=== PATIENT | male | born 1990 | race Caucasian/White ===

== ENCOUNTER 2018-01-05 21:06 | Emergency (ER) | payer BC ==
--- NOTE | 2018-01-05 21:12 | UC ---
Lower Extremity/Ankle HPI - History of Current Complaint Stated Complaint: FOOT INJURY Time Seen by Provider: 01/05/18 21:12 - Allergies/Home Medications Allergies/Adverse Reactions: Allergies Allergy/AdvReac Type Severity Reaction Status Date / Time ENVIRONMENTAL - SEASONAL Allergy Unknown Uncoded 06/24/12 13:24 Reaction Details PMH/Surg Hx/FS Hx/Imm Hx - Surgical History Surgical History: Yes Surgery Procedure, Year, and Place: 05/2011 LEFT HAND SURGERY, [facility] - Social History Substance Use Type: None Discharge - Discharge Plan Referrals: No Primary Care Phys,NOPCP [Primary Care Provider] -
[2018-01-05 21:29] VITALS: BP 140/78
--- NOTE | 2018-01-05 21:47 | RAD ---
INDICATION: Rock versus left medial foot COMPARISON: None. TECHNIQUE: 3 views of the left foot were obtained. FINDINGS: There is soft tissue swelling overlying the medial aspect of the left foot. The adequately corticated bones are properly aligned. Joint spaces appear maintained. No fracture, dislocation or focal bony abnormality is seen. IMPRESSION: SOFT TISSUE SWELLING OVERLYING THE MEDIAL ASPECT OF THE LEFT FOOT WITHOUT UNDERLYING FRACTURE, DISLOCATION OR RADIOGRAPHICALLY VISIBLE SUBCUTANEOUS FOREIGN BODY. If the patient's symptoms persist, follow-up imaging is recommended.
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
== END 2018-01-05 21:50 | disposition home or self-care (01) ==
LOC: UCEAST 21:06
DX: M79.672 Pain in left foot (principal); M79.89 Other specified soft tissue disorders
CPT/HCPCS: 99211; G0463

== ENCOUNTER → 2019-02-06 | Emergency (ER) | payer BC ==
[~2019-02-06] MED LIST: hydrOXYzine HCL TAB* 50 MG PO ONE
--- OUTSIDE RECORDS SUMMARY | 2019-02-06 16:53 | XMS REPORT | Continuity of Care Document ---
:1990 External Reference #:[id number] Author Name JULIUS Stokes Address [address] [place] [address] Care Team Providers Name Role Phone Daniel Blake MD Care Team Information Mental Health Counselor Unavailable Daniel Blake MD Primary Care Physician Unavailable Payers Date Identification Numbers Payment Provider Subscriber Policy Number: [id number] [place] Plan Taras Amor PayID: [id number] [address] [place] [address] Effective: 2018 Policy Number: [id number] BC/BS Of MELANIEY Taras Amor Expires: 2018 Group Name: Talya [address] [address] PayID: [id number] [place] [address] Problems Active Problems Provider Date Loss of appetite Jai Godinez M.D. Onset: 03/09/2011 Acne Jai Godinez M.D. Onset: 04/12/2012 Verruca vulgaris Jai Godinez M.D. Onset: 04/12/2012 Adult health examination Jai Godinez M.D. Onset: 04/12/2012 Open wound of forearm with tendon Jai Godinez M.D. Onset: 10/10/2011 involvement Acute upper respiratory infection Jai Godinez M.D. 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 Adderall XR 1 by mouth 30caps Aura Del Valle, 03/11/2018 15mg Caps every day 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 ER 24HR History Medications Claritin 1 po qd allergies 90tabs Devi 12/24/2018 - 10mg Tablets MunadonnawayneYuridia 01/18/2019 Adderall 1 by mouth three 90tabs Aura 02/02/2018 - 5mg Tablets times a day as JULIUS Del Valle 03/11/2018 needed Doxycycline Hyclate 1 by mouth twice a 60tabs Aura 01/26/2018 - day for 30 JULIUS Del Valle 04/13/2018 100mg Tablets Hydrocortisone apply sparingly to 30gm Devi 05/03/2012 - Valerate affected area bid Yuridia Porter 01/31/2013 0.2% Cream prn Keflex 1 po tid 30caps Devi 02/02/2012 - 500mg Capsules Yuridia Porter 04/12/2012 Azithromycin 2 po today and 1 po 6tabs 465.9 Jai Sharpe 08/21/2011 - 250mg x 4 days Adela Godinez 10/10/2011 Tablets Minocycline HCL one tab po qhs 90caps 706.1 Jai Sharpe 03/31/2011 - 100mg Adela Godinez 12/23/2017 Capsules Clindagel apply to affected 30g 706.1 Gordon Downs, 03/31/2011 - 1% Gel area daily 30cm M.DRadha 01/31/2013 Tretinoin apply to affected 80grams 706.1 Gordon Downs, 03/31/2011 - 0.05% Cream area qhs M.DRadha 01/31/2013 10cm area Azithromycin 2 po today and 1 po 6tabs 465.9 Jai Sharpe 03/31/2011 - 250mg x 4 days Adela Godinez 08/21/2011 Tablets Claritin-D 24 Hour 1 po qd 15tabs 465.9 Jai Sharpe 04/16/2010 - Adela Godinez 05/07/2010 10-240mg Tablets ER 24HR Azithromycin 2 po today and 1 po 6tabs 465.9 Jai Sharpe 04/16/2010 - 250mg x 4 days Adela Godinez 04/23/2010 Tablets Note - To Whom It He will require 1units Jai Sharpe 04/02/2010 - May Concern ongoing medical, Adela Godinez 05/28/2010 nutritional and psychological therapy for his condition, medically necessary [facility] 02/05/2010 - [facility] 12/23/2017 Tablets Puposky Calcium 500/D 1 po qd 180units 783.0 Jai Sharpe 01/08/2010 - Adela Godinez 03/31/2011 [id number] Chewtabs Azithromycin three times a week Unknown - 250mg 01/29/2018 Tablets Medications Administered in Office Medication SIG Qnty Indications Ordering Provider Date Brief Emotional/Behav Aura Del Valle [facility] 01/26/2018 Assessment W/ Scoring Doc Per Standard Inst Injection Aurelia Emotional/Behav Aura Del Valle [facility] 12/23/2017 Assessment W/ Scoring Doc Per Standard Inst Injection Injection Subcutaneous Or Unknown 06/29/2007 Intramuscular Injection Injection Subcutaneous Or Unknown 06/29/2007 Intramuscular Injection Immunizations CPT Code Status Date Vaccine Lot # [id number] Given 04/02/2018 Influenza Vac, Quadriv[place], [place] [address] Given 05/08/2015 Influenza Vac, [place], [place] [address] Given 01/31/2013 Gardasil vacine typs 6,11,16,18 3 dose schedule [id number] 82698 Given 02/02/2012 Tdap Tetanus, W Pertussis [id number] 77218 Given 10/20/2006 Meningococcal Conjugate Vaccine,Serogroups For Intramuscular Use 29125 Given 10/07/2005 Hep A Ped 2-Dose Immunization 87343 Given 10/08/2004 Hep A Ped 2-Dose Immunization 50653 Given 06/08/2001 Tdap Tetanus, W Pertussis 00360 Given 05/17/1994 Hepatitis B Immunization, [place]-19 Years [address] Given 12/10/1993 Hepatitis B Immunization, -19 Years 90218 Given 10/29/1993 Hepatitis B Immunization, [place]-19 Years [address] Given 10/09/1993 DTaP Immunization 24801 Given 10/09/1993 (IPV) Inactive Poliovirus Vaccine 24918 Given 11/03/1991 MMR Virus Immunization 10962 Given 02/24/1990 (IPV) Inactive Poliovirus Vaccine 37994 Given 02/24/1990 (Hib) Hemoplilus Influenza B 86269 Given 12/31/1989 MMR Virus Immunization 25480 Given 12/31/1989 DTaP Immunization 72899 Given 04/28/1989 DTaP Immunization 07316 Given 01/01/1989 (IPV) Inactive Poliovirus Vaccine 08247 Given 01/01/1989 DTaP Immunization 21088 Given 1988 (IPV) Inactive Poliovirus Vaccine 99687 Given 1988 DTaP Immunization Vital Signs Date Vital Result Comment 01/18/2019 2:28pm BP Systolic 110 mmHg BP Diastolic 70 mmHg Heart Rate 78 /min Body Temperature 97.7 F Respiratory Rate 16 /min Weight 187.00 lb 07/01/2018 1:34pm BP Systolic 128 mmHg BP Diastolic 72 mmHg Heart Rate 78 /min Body Temperature 97.3 F Respiratory Rate 18 /min Weight 198.00 lb 04/13/2018 1:27pm BP Systolic 124 mmHg BP Diastolic 82 mmHg Heart Rate 64 /min Body Temperature 98.2 F Respiratory Rate 16 /min Height 73.25 inches 6'1.25" Weight 200.00 lb BMI (Body Mass Index) 26.2 kg/m2 01/26/2018 5:28pm BP Systolic 120 mmHg BP Diastolic 82 mmHg Heart Rate 70 /min Body Temperature 97.6 F Respiratory Rate 15 /min Height 73.25 inches 6'1.25" Weight 189.50 lb BMI (Body Mass Index) 24.8 kg/m2 12/23/2017 8:45am BP Systolic 106 mmHg BP Diastolic 60 mmHg Heart Rate 68 /min Body Temperature 97.2 F Respiratory Rate 16 /min Height 73.25 inches 6'1.25" Weight 186.38 lb BMI (Body Mass Index) 24.4 kg/m2 01/31/2013 4:21pm BP Systolic 138 mmHg BP Diastolic 70 mmHg Heart Rate 60 /min Body Temperature 99.5 F Height 73.25 inches 6'1.25" Weight 181.00 lb BMI (Body Mass Index) 23.7 kg/m2 Right Visual Acuity Distance 20/20 Left Visual Acuity Distance 20/20 wears corrective lens 05/03/2012 10:27am BP Systolic 104 mmHg BP Diastolic 70 mmHg Heart Rate 60 /min Body Temperature 98.0 F Respiratory Rate 14 /min Height 73.5 inches 6'1.50" Weight 184.00 lb BMI (Body Mass Index) 23.9 kg/m2 04/12/2012 9:02am BP Systolic 120 mmHg BP Diastolic 78 mmHg Heart Rate 60 /min Body Temperature 97.0 F Height 73.5 inches 6'1.50" Weight 186.00 lb BMI (Body Mass Index) 24.2 kg/m2 Right Visual Acuity Distance 20/20 corrected Left Visual Acuity Distance 20/20 02/02/2012 10:30am BP Systolic 110 mmHg BP Diastolic 70 mmHg Heart Rate 54 /min Body Temperature 97.2 F Height 73.5 inches 6'1.50" Weight 176.00 lb BMI (Body Mass Index) 22.9 kg/m2 10/10/2011 8:49am BP Systolic 110 mmHg BP Diastolic 70 mmHg Heart Rate 72 /min Respiratory Rate 14 /min Height 73.5 inches 6'1.50" Weight 171.00 lb BMI (Body Mass Index) 22.3 kg/m2 08/21/2011 7:27pm BP Systolic 132 mmHg BP Diastolic 76 mmHg Heart Rate 66 /min Body Temperature 97.4 F Height 73.5 inches 6'1.50" Weight 179.00 lb PT Was Fully Dressed AT This Visit BMI (Body Mass Index) 23.3 kg/m2 03/31/2011 10:02am BP Systolic 110 mmHg BP Diastolic 66 mmHg Heart Rate 60 /min Body Temperature 97.4 F Height 73.5 inches 6'1.50" Weight 164.00 lb BMI (Body Mass Index) 21.3 kg/m2 01/27/2011 8:28am BP Systolic 106 mmHg BP Diastolic 70 mmHg Heart Rate 60 /min Body Temperature 96.9 F Height 73.5 inches 6'1.50" Weight 162.50 lb BMI (Body Mass Index) 21.1 kg/m2 12/30/2010 8:31am BP Systolic 110 mmHg BP Diastolic 60 mmHg Heart Rate 54 /min Body Temperature 96.8 F Height 73.5 inches 6'1.50" Weight 155.38 lb BMI (Body Mass Index) 20.2 kg/m2 11/25/2010 8:59am BP Systolic 110 mmHg BP Diastolic 72 mmHg Heart Rate 56 /min Body Temperature 96.2 F Respiratory Rate 20 /min Height 73.5 inches 6'1.50" Weight 155.00 lb BMI (Body Mass Index) 20.2 kg/m2 09/18/2010 4:32pm BP Systolic 100 mmHg BP Diastolic 62 mmHg Heart Rate 64 /min Body Temperature 96.5 F Height 73.5 inches 6'1.50" Weight 156.00 lb BMI (Body Mass Index) 20.3 kg/m2 08/07/2010 3:40pm BP Systolic 118 mmHg BP Diastolic 60 mmHg Heart Rate 60 /min Body Temperature 98.2 F Height 73.5 inches 6'1.50" Weight 151.00 lb BMI (Body Mass Index) 19.6 kg/m2 07/03/2010 1:46pm BP Systolic 104 mmHg BP Diastolic 66 mmHg Heart Rate 66 /min Body Temperature 97.8 F Height 73.5 inches 6'1.50" Weight 150.00 lb BMI (Body Mass Index) 19.5 kg/m2 06/11/2010 2:54pm BP Systolic 110 mmHg BP Diastolic 64 mmHg Heart Rate 76 /min Body Temperature 98.0 F Weight 148.50 lb 05/28/2010 2:40pm BP Systolic 94 mmHg BP Diastolic 64 mmHg Heart Rate 60 /min Body Temperature 97.4 F Height 73.5 inches 6'1.50" Weight 148.00 lb BMI (Body Mass Index) 19.3 kg/m2 05/07/2010 2:36pm BP Systolic 86 mmHg BP Diastolic 40 mmHg Heart Rate 68 /min Body Temperature 97.7 F Respiratory Rate 16 /min Height 73.5 inches 6'1.50" Weight 148.00 lb BMI (Body Mass Index) 19.3 kg/m2 04/23/2010 4:04pm BP Systolic 90 mmHg BP Diastolic 50 mmHg Heart Rate 60 /min Body Temperature 97.4 F Respiratory Rate 16 /min Height 73.5 inches 6'1.50" Weight 143.00 lb BMI (Body Mass Index) 18.6 kg/m2 04/16/2010 2:52pm BP Systolic 100 mmHg BP Diastolic 68 mmHg Heart Rate 72 /min Body Temperature 98.1 F Height 73.5 inches 6'1.50" Weight 142.00 lb BMI (Body Mass Index) 18.5 kg/m2 04/02/2010 2:55pm BP Systolic 108 mmHg BP Diastolic 62 mmHg Heart Rate 60 /min Body Temperature 97.4 F Height 73.5 inches 6'1.50" Weight 144.00 lb BMI (Body Mass Index) 18.7 kg/m2 03/20/2010 3:15pm BP Systolic 90 mmHg BP Diastolic 52 mmHg Heart Rate 60 /min Body Temperature 97.4 F Height 73.5 inches 6'1.50" Weight 143.00 lb BMI (Body Mass Index) 18.6 kg/m2 03/12/2010 2:59pm BP Systolic 86 mmHg BP Diastolic 60 mmHg Heart Rate 66 /min Body Temperature 97.3 F Height 73.5 inches 6'1.50" Weight 139.38 lb BMI (Body Mass Index) 18.1 kg/m2 02/26/2010 2:48pm BP Systolic 92 mmHg BP Diastolic 52 mmHg Heart Rate 66 /min Body Temperature 97.6 F Height 73.5 inches 6'1.50" Weight 141.25 lb BMI (Body Mass Index) 18.4 kg/m2 02/05/2010 10:10am BP Systolic 96 mmHg BP Diastolic 64 mmHg Heart Rate 60 /min Height 73.5 inches 6'1.50" Weight 136.25 lb BMI (Body Mass Index) 17.7 kg/m2 01/08/2010 10:59am BP Systolic 100 mmHg BP Diastolic 52 mmHg Heart Rate 66 /min Body Temperature 97.9 F Height 73.5 inches 6'1.50" Weight 132.00 lb BMI (Body Mass Index) 17.2 kg/m2 12/25/2009 10:10am BP Systolic 90 mmHg BP Diastolic 40 mmHg Heart Rate 66 /min Body Temperature 97.5 F Height 73.5 inches 6'1.50" Weight 130.00 lb BMI (Body Mass Index) 16.9 kg/m2 Results Test Date Facility Test Result H/L Range Note Laboratory test 12/23/2017 [facility] Nuclear AB (Elana) <1:80 1 finding By Ifa Igg (Negative) Syphillis Igg W/Reflex RPR Nonreactive Nonreactive 2 Bordetella Pertussis AB, 12/23/2017 [facility] Bordetella Pertussis Negative Negative 3 Igg IgG PT Bordetella Pertussis IgG Fha 23.10 IU/mL 4 Lyme Western Blot 12/23/2017 [facility] Lyme Disease IgG Ab WB Positive Abnormal Negative Lyme Disease IgG Bands Present See Comment kDa 5 Lyme Disease IgM Ab WB Negative Negative Lyme Disease IgM Bands Present p41 kDa Lyme Disease Interpretation See Comment 6 Ehrlichia Igg/Igm 12/23/2017 [facility] Anaplasma phagocytophila <1:64 titer <1 :64 7 Ifa([facility]) IgG Ehrlichia chaffeensis IgG AB <1:64 titer <1:64 8 Laboratory test finding 12/23/2017 [facility] Babesiosis Evaluation <1:64 titer <1:64 9 Anaplasma Phagocytophilium TNP titer () 10 Laboratory test 12/23/2017 [facility] HIV 1&2 negative Negative finding (607)- - Antibody Screen (Fma) CBC Electronic Fma 12/23/2017 [place]([facility]) WBC 6.8 x10^3/UL 4.0- 10.0 RBC 5.60 x10^6/UL 3.93-6.00 HGB 16.0 g/dL 12.0-17.0 HCT 48 % 35-50 MCV 86.1 fL 80.0-95.0 MCH 28.6 pg 25.6-32.2 MCHC 33.2 g/dL 32.2-36.0 RDW-CV 13.3 % 11.6-14.4 PLT 241 x10^3/UL 163-400 MPV 9.9 fL 9.4-12.4 Jayla# 3.72 x10^3/UL 1.56-6.13 Lymph# 2.30 x10^3/UL 1.18-3.74 [place]# 0.47 x10^3/UL 0.24-0.82 Eos # 0.3 x10^3/UL 0.0-0.5 Baso # 0.06 x10^3/UL 0.01-0.08 Jayla% 54.4 % 34.0-70.0 Lymph % 33.6 % 20.0-52.0 [place]% 6.9 % 5.0-12.0 Eos% 3.8 % 0.7-7.0 Baso% 0.9 % 0.1-1.2 Comprehensive Metabolic 12/23/2017 [place] Hel[facility](a) Sodium 139 mEq/L 134-149 Prof Potassium 4.9 mEq/L 3.6-5.5 Chloride 101 mEq/L 94-112 Carbon Dioxide 25 mEq/L 21-32 Glucose 62 mg/dL Low 70-105 11 BUN 16 mg/dL 6-26 Creatinine 1.0 mg/dL 0.6-1.4 BUN/Creat Ratio 16.0 CALC 8.0-36.0 Calcium 10.3 mg/dL High 8.6-10.2 12 Total Protein 7.3 g/dL 6.4-8.3 Albumin 5.1 g/dL 3.8-5.5 Globulin 2.2 g/dL 2.0-4.8 A/G Ratio 2.3 CALC 0.6-2.3 Alk. Phosphatase 66 U/L 22-95 Alt (SGPT) 26 U/L 7-35 Ast (Sgot) 32 U/L 5-34 Total Bilirubin 1.1 mg/dL 0.2-1.3 GFR Non- >60 ml/min/1.73m^ >=60 GFR >60 ml/min/1.73m^ >=60 Laboratory test finding 12/23/2017 [place]([facility]) TSH 1.75 mIU/L 0.50-6.00 Free T4 1.08 ng/dL 0.75-1.54 Ua - Non Micro (a) 01/31/2013 [facility] Appearance CLEAR (607)- - Color YELLOW Glucose, Urine (Fma/CMC/CTX) NEG Bilirubin NEG Ketones NEG SP Grav 1.015 Blood NEG PH 7.0 Protein NEG Urobil 0.2 Nitrite NEG Leukocytes (Fma/CMC/Centrex) NEG Ua - Non Micro (a) 04/12/2012 [facility] Appearance CLEAR (607)- - Color YELLOW Glucose NEG Bilirubin NEG Ketones NEG SP Grav 1.015 Blood NEG PH 7.5 Protein NEG Urobil 0.2 Nitrite NEG Leukocytes (Fma/CMC/[facility]rex) NEG Ua - Non Micro (a) 03/31/2011 [facility] Appearance CLEAR (607)- - Color YELLOW Glucose NEG Bilirubin NEG Ketones NEG SP Grav 1.015 Blood NEG PH 7.0 Protein NEG Urobil 0.2 Nitrite NEG Leukocytes (a/CMC/Centrex) NEG Ua - Non Micro (a) 01/27/2011 [facility] Appearance CLEAR (607)- - Color YELLOW Glucose NEG Bilirubin NEG Ketones NEG SP Grav 1.010 Blood NEG PH 7.0 Protein NEG Urobil 0.2 Nitrite NEG Leukocytes (Fma/CMC/Centrex) NEG Ict Hemoccult (Fma) 01/24/2011 [facility] Ict Hemoccult (1) 6/19 NEG (607)- - Ict Hemoccult-(2) 01/06 NEG Ict-Hemoccult (3) 01/08 NEG Laboratory test 12/30/2010 [place] [facility]([facility]) TSH 2.67 mIU/L 0.50-6.00 finding Laboratory test 12/30/2010 [facility] C-Reactive 0.2 mg/L 0.0-5.0 13 finding [address] [place] [address] [phone] Ua - Non Micro 12/30/2010 [facility] Appearance CLEAR (a) (607)- - Color YELLOW Glucose NEG Bilirubin NEG Ketones NEG SP Grav 1.015 Blood NEG PH 5.5 Protein NEG Urobil 0.2 Nitrite NEG Leukocytes (Fma/CMC/Centrex) NEG CBC Electronic (a) 12/30/2010 [facility] WBC 5.0 3.6-9.6 (607)- - RBC 5.19 3.90-5.70 Hemoglobin (Fma/CMC/CTX) 16.0 g/dL 12.1 - 17.2 Hematocrit (Fma/CMC/CTX) 47.3 % 36.1 - 50.3 Platelets 252 10^3/ul 150-400 Lymph% 26.0 20.5-51.1 Mixed% 6.4 Neutrophils % 67.6 Mean Corpuscular Vol 91 82.2-97.4 Mean Corpuscular Hemoglobin 30.9 27.6-33.3 Mean Corpuscular Hemo Concen 33.9 32.0-36.0 RDW 12.6 11.6-13.7 Mean Platelet Volume 8.1 6.5-11.0 Ua - Non Micro (a) 08/07/2010 [facility] Appearance CLEAR (607)- - Color YELLOW Glucose NEG Bilirubin NEG Ketones TRACE SP Grav 1.025 Blood NEG PH 7.0 Protein NEG Urobil 0.2 Nitrite NEG Leukocytes (Fma/CMC/Centrex) NEG Ua - Non Micro (Fma) 07/03/2010 [facility] Medicine Appearance CLEAR (607)- - Color YELLOW Glucose NEG Bilirubin NEG Ketones NEG SP Grav 1.015 Blood NEG PH 7.0 Protein NEG Urobil 0.2 Nitrite NEG Leukocytes (Fma/CMC/Centrex) NEG Ua - Non Micro (a) 06/11/2010 [facility] Appearance CLEAR (607)- - Color YELLOW Glucose NEG Bilirubin NEG Ketones NEG SP Grav 1.010 Blood NEG PH 7.0 Protein NEG Urobil 0.2 Nitrite NEG Leukocytes (a/CMC/Centrex) NEG Ua - Non Micro (a) 05/28/2010 [facility] Appearance CLEAR (607)- - Color YELLOW Glucose NEG Bilirubin NEG Ketones NEG SP Grav <=1.005 Blood NEG PH 5.5 Protein NEG Urobil 0.2 Nitrite NEG Leukocytes (a/CMC/Centrex) NEG Ua - Non Micro (a) 05/07/2010 [facility] Appearance CLEAR (607)- - Color YELLOW Glucose NEG Bilirubin NEG Ketones NEG SP Grav <=1.005 Blood NEG PH 6.5 Protein NEG Urobil 0.2 Nitrite NEG Leukocytes (a/CMC/Centrex) NEG Ua - Non Micro (a) 04/23/2010 [facility] Appearance CLEAR (607)- - Color YELLOW Glucose NEG Bilirubin NEG Ketones NEG SP Grav 1.010 Blood NEG PH 7.5 Protein NEG Urobil 0.2 E.U./dL Nitrite NEG Leukocytes (a/CMC/Centrex) NEG Ua - Non Micro (a) 04/16/2010 [facility] Appearance CLEAR (607)- - Color YELLOW Glucose NEG Bilirubin NEG Ketones NEG SP Grav 1.010 Blood NEG PH 7.0 Protein NEG Urobil 0.2 Nitrite NEG Leukocytes (a/CMC/Centrex) NEG Ua - Non Micro (a) 04/02/2010 [facility] Appearance CLEAR (607)- - Color YELLOW Glucose NEG Bilirubin NEG Ketones NEG SP Grav <=1.005 Blood NEG PH 5.5 Protein NEG Urobil 0.2EU/DL Nitrite NEG Leukocytes (a/CMC/Centrex) NEG Ua - Non Micro (a) 03/20/2010 [facility] Appearance clear (607)- - Color yellow Glucose neg Bilirubin neg Ketones neg SP Grav 1.010 Blood neg PH 7.0 Protein neg Urobil 0.2eu/dl Nitrite neg Leukocytes (a/CMC/[facility]rex) neg Ua - Non Micro (a) 03/12/2010 [facility] Appearance CLEAR (607)- - Color YELLOW Glucose NEG Bilirubin NEG Ketones NEG SP Grav 1.010 Blood NEG PH 6.5 Protein NEG Urobil 0.2EU/DL Nitrite NEG Leukocytes (a/CMC/Centrex) NEG Ua - Non Micro (Fma) 02/26/2010 [facility] Appearance CLEAR (607)- - Color YELLOW Glucose NEG Bilirubin NEG Ketones NEG SP Grav 1.010 Blood NEG PH 7.0 Protein NEG Urobil 0.2 E.U./dL Nitrite NEG Leukocytes (Fma/CMC/Centrex) NEG Ua - Non Micro (Fma) 02/05/2010 [facility] Appearance CLEAR (607)- - Color YELLOW Glucose NEG Bilirubin NEG Ketones NEG SP Grav 1.010 Blood NEG PH 6.5 Protein NEG Urobil 0.2 Nitrite NEG Leukocytes (Fma/CMC/[facility]) NEG Laboratory test 01/08/2010 [facility] Vitamin 93.6 High 10.0-75.0 finding 28 [facility] D,1,25 pg/[place] [address] Dihydro [phone] Comprehensive 01/08/2010 [place] Helene(a) Albumin 4.8 g/dL 3.8-5.5 Metabolic Prof Alk. Phos. 65 U/L 22-95 Alt (SGPT) 28 U/L 10-40 Ast (Sgot) 27 U/L 5-34 BUN 28 mg/dL High 6-26 14 Calcium 10.1 mg/dL 8.6-10.2 Chloride 101 mEq/L 94-112 Creatinine 0.7 mg/dL 0.6-1.4 Carbon Dioxide 25 mEq/L 21-32 Glucose 88 mg/dL 70-105 Sodium 142 mEq/L 134-149 Total Bilirubin 0.5 mg/dL 0.2-1.3 Total Protein 7.1 g/dL 6.3-8.1 Potassium 4.1 mEq/L 3.6-5.5 Globulin 2.3 g/dL 2.0-4.8 A/G Ratio 2.0 Calc 0.6-2.2 BUN/Creat Ratio 38.3 Calc High 8.0-36.0 Laboratory test 01/08/2010 [place] Helene(a) Magnesium 1.9 mEq/L 1.2- 2.1 finding Phosphorus 3.0 mg/dL 2.5-4.8 1 <1:80 (Negative) REFERENCE VALUE <1:80 (Negative) Test Performed by: [facility] [place] [id number] 2 Warning: A positive result is not useful for establishing a diagnosis of syphilis. In most situations, such a result may reflect a prior treated infection; a negative result can exclude a diagnosis of syphilis except for incubating or early primary disease. 3 No IgG antibodies to pertussis toxin (PT) detected. Results may be falsely negative in patients with < 2 weeks of symptoms. 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 ADDITIONAL INFORMATION CDC criteria require >=5 bands for IgG or >=2 bands for IgM for the Immunoblot to be considered positive. Bands (e.g.,p41) may be detected in patients without Lyme disease, and patterns not meeting the CDC criteria should be interpreted with caution. Immunoblot should be ordered only on specimens that are positive or equivocal by a FDA-licensed Lyme disease antibody screening test (e.g., EIA). Test Performed by: [facility] [place] [address] 7 ADDITIONAL INFORMATION This test was developed using an analyte specific reagent. Its performance characteristics were determined by [facility] in a manner consistent with CLIA requirements. This test has not been cleared or approved by the U.S. Food and Drug Administration. 8 ADDITIONAL INFORMATION This test was developed using an analyte specific reagent. Its performance characteristics were determined by [facility] in a manner consistent with CLIA requirements. This test has not been cleared or approved by the U.S. Food and Drug Administration. Test Performed by: [facility] - [address] [id number] 9 ADDITIONAL INFORMATION This test was developed using an analyte specific reagent. Its performance characteristics were determined by [facility] in a manner consistent with CLIA requirements. This test has not been cleared or approved by the U.S. Food and Drug Administration. Test Performed by: [facility] [place] [address] 10 Cancelled due to duplicate test on this order Test Performed by: [facility] [place] [address] 11 RESULTS VERIFIED BY REPEAT ANALYSIS 12 RESULTS VERIFIED BY REPEAT ANALYSIS 13 14 RESULT TITUS'D Procedures Date Code Description Status 07/01/2018 44696 Brief Emotional/Behav Assessment W/ Scoring Doc Per Completed Standard [facility] 01/26/2018 12754 Brief Emotional/Behav Assessment W/ Scoring Doc Per Completed Standard [facility] 12/23/2017 59404 Brief Emotional/Behav Assessment W/ Scoring Doc Per Completed Standard [facility] 01/31/2013 09942 Vision Test- screening test of visual acuity, Completed quantitative, bila 04/12/2012 87085 Vision Test- screening test of visual acuity, Completed quantitative, bila 06/29/2007 24103 Injection Subcutaneous Or Intramuscular Completed 06/29/2007 74393 Injection Subcutaneous Or Intramuscular Completed Encounters Type Date Location Provider Dx Diagnosis Office Visit 07/01/2018 [facility] Office Aura Del Valle, R53.83 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 F34.1 Dysthymic disorder R53.81 Other malaise R41.840 Attention and concentration deficit F41.9 Anxiety disorder, unspecified Office Visit 04/13/2018 1:00p Main Office Aura Del Valle 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.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 F34.1 Dysthymic disorder Office Visit 01/26/2018 5:30p Main Office Aura Del Valle, R53.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 R53.81 Other malaise A69.20 Lyme disease, unspecified F34.1 Dysthymic disorder Z00.00 Encntr for general adult medical exam w/o abnormal findings Office Visit 12/23/2017 8:45a [facility] Office Aura R53.83 Other fatigue Eligio, 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 R53.81 Other malaise R11.0 Nausea A69.20 Lyme disease, unspecified Z13.89 Encounter for screening for other disorder Office Visit 01/31/2013 4:00p [facility] Aura v04.89 Need For Office Eligio, 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 Prophylactic Vaccination & Inoculation Other Virus V70.3 Examination Other Medical For Administrative Purpose V72.0 Examination Eyes & Vision Office Visit 05/03/2012 10:15a Main Office Devi Porter, Afnp-C 786.2 Cough 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 Exclud Gingiva & Cameron Cancrum Hansa Office Visit 04/12/2012 9:00a [facility] Office Jai Sharpe V70.0 Examination Adela Godinez General Medical Routine AT [facility] 078.10 Viral Warts Unspec 706.1 Acne Other V72.0 Examination Eyes & Vision Office Visit 02/02/2012 10:30a Main Office Devi Porter, 892.0 Open Wound Foot Afnp-C Except Toe(S) Alone W/O Complication V06.5 Tetanus Diphtheria (DT) Office Visit 10/10/2011 8:40a [facility] Office Jai Sharpe 881.20 Open Wound Forearm Adela Godinez W/ Tendon Involvement 955.3 Injury Peripheral Nerve Radial 955.2 Injury Nerve Ulnar Office Visit 08/21/2011 7:30p [facility] Office Jai Sharpe 465.9 URI Upper Adela Godinez Respiratory Infections Acute Unspec Sites Office Visit 03/31/2011 9:40a [facility] Office Jai Sharpe 465.9 URI Upper Adela Godinez Respiratory Infections Acute Unspec Sites 783.0 Anorexia 706.1 Acne Other Office Visit 01/27/2011 8:20a [facility] Office Jai Godinez M.D. 783.0 Anorexia 789.00 Pain Abdominal Unspec Site Office Visit 12/30/2010 8:20a [facility] Jai Sharpe 789.00 Pain Abdominal Adela Godinez Unspec Site 783.0 Anorexia Office Visit 11/25/2010 8:40a [facility] Jai ARadha 564.00 Constipation Adela Godinez Unspecified 783.0 Anorexia Office Visit 09/18/2010 4:10p [facility] Office Jai Godinez M.D. 783.0 Anorexia Office Visit 08/07/2010 3:20p [facility] Jai Godinez M.D. 783.0 Anorexia Office Visit 07/03/2010 1:40p [facility] Office Jai Godinez M.D. 783.0 Anorexia Office Visit 06/11/2010 2:40p [facility] Office Jai Godinez M.D. 783.0 Anorexia Office Visit 05/28/2010 2:40p [facility] Office Jai Godinez M.D. 783.0 Anorexia Office Visit 05/07/2010 2:40p [facility] Office Jai Godinez M.D. 783.0 Anorexia Office Visit 04/23/2010 3:40p [facility] Office Jai Godinez M.D. 783.0 Anorexia 465.9 URI Upper Respiratory Infections Acute Unspec Sites Office Visit 04/16/2010 2:40p [facility] Office Jai Sharpe 465.9 URI Upper Adela Godinez Respiratory Infections Acute Unspec Sites 783.0 Anorexia Office Visit 04/02/2010 2:40p [facility] Office Jai Godinez M.D. 783.0 Anorexia Office Visit 03/20/2010 3:20p [facility] Office Jai Godinez M.D. 783.0 Anorexia Office Visit 03/12/2010 3:00p [facility] Office Jai Godinez M.D. 783.0 Anorexia Office Visit 02/26/2010 2:40p [facility] Office Jai Godinez M.D. 783.0 Anorexia Office Visit 02/05/2010 10:00a [facility] Office Jai Godinez M.D. 783.0 Anorexia Office Visit 01/08/2010 10:40a [facility] Office Jai Godinez M.D. 783.0 Anorexia Office Visit 12/25/2009 10:00a [facility] Office Jai Godinez M.D. 783.0 Anorexia Plan of Treatment 01/18/2019 - Aura Del Valle, FNPF34.1 Dysthymic disorderFollow up:as needed continue at current dosing, call [facility] if condition changes/worsens in any wayR41.840 Attention and concentration [id number] Allergic rhinitis, unspecifiedComments:stop afrinok to use flonase, nasonex, saline irrigationdouble up on antihistamines try a different antihistamineFollow up: call [facility] if condition changes/worsens in any wayJ30.0 Vasomotor rhinitisAllComments:Medication Management Patient Understands medications he ' s taking? Yes No Are there Barriers to Adherence? Yes No Has the patient been asked about herbal supplements and therapies, andOTC meds? Yes No As always, we strongly encourage a healthy diet and making physical activity a part of your every day life. If you have questions about how or where to start, please contact the office.
--- NOTE | 2019-02-06 20:12 | ED ---
Psychiatric Complaint - HPI Summary HPI Summary: This patient is a 28 year old M presenting to ED with a chief complaint of anxiety since this morning. Patient smoked marijuana today and got paranoid. He had a panic attack. He was not drinking alcohol today. He has smoked marijuana previously. He states the marijuana was not laced. Patient reports he has many stressors in his life right now. In the ED room, patient feels much better and only feels upset about the things he said during his panic attack. Patient has a history of anxiety, depression, and anorexia. Patient takes Zoloft, but he forgot to take it this morning. He hasnt been seeing his therapist recently, but was planning to call for an appointment this week. Patient states he does not want a full-blown mental health evaluation. Patient is accompanied by his friend, who would drive him to his mothers house, where she would accompany him during the night. The patient rates the pain 0/10 in severity. Symptoms aggravated by recent stress, marijuana use. Symptoms alleviated by nothing. Patient denies SI/HI, fever, hallucinations. - History Of Current Complaint Chief Complaint: EDPsychosocial Time Seen by Provider: 02/06/19 19:57 Hx Obtained From: Patient Onset/Duration: Sudden Onset, Resolved Timing: Constant Severity Initially: Severe Severity Currently: None Character: Anxious Aggravating Factor(s): Recent Stress, Drug Use - Marijuana Alleviating Factor(s): Nothing Associated Signs And Symptoms: Negative: Hallucinating Related History: Positive For: Prior Psychiatric Issues Has Suicidal: Denies: Thoughts Has Homicidal: Denies: Thoughts Ingestion History: Type/Name Of Drug - Marijuana, Approximate Time Of Ingestion - This morning - Allergies/Home Medications Allergies/Adverse Reactions: Allergies Allergy/AdvReac Type Severity Reaction Status Date / Time ENVIRONMENTAL - SEASONAL Allergy Unknown Uncoded 02/07/19 20:01 Reaction Details PMH/Surg Hx/FS Hx/Imm Hx Previously Healthy: No Endocrine/Hematology History: Reports: Hx Anemia - 06/16/2011 AFTER ACCIDENT R/ T TRAUMA TO HAND Sensory History: Reports: Hx Contacts or Glasses - GLASSES Denies: Hx Hearing Aid Opthamlomology History: Reports: Hx Contacts or Glasses - GLASSES Psychiatric History: Reports: Hx Anxiety, Hx Eating Disorder - Anorxia, Hx Depression - Surgical History Surgery Procedure, Year, and Place: 05/2011 LEFT HAND SURGERY, [facility] Hx Anesthesia Reactions: No Infectious Disease History: No Infectious Disease History: Denies: Traveled Outside the [place] in Last 30 Days - Family History Known Family History: Negative: Renal Disease - Social History Alcohol Use: None Hx Substance Use: Yes Substance Use Type: Reports: Marijuana Hx Tobacco Use: Yes Smoking Status (MU): Former Smoker Have You Smoked in the Last Year: No Review of Systems Negative: Fever Psychological: Other - Negative SI/HI, hallucinations All Other Systems Reviewed And Are Negative: Yes Physical Exam - Summary Physical Exam Summary: GENERAL: Patient is a well-developed and nourished M who is lying comfortable in the stretcher. Patient is not in any acute respiratory distress. HEAD AND FACE: Normocephalic EYES: PERRLA, EOMI x 2. EARS: Hearing grossly intact. MOUTH: Oropharynx within normal limits. NECK: Supple, trachea is midline, no adenopathy, no JVD, no carotid bruit. CHEST: Symmetric, no tenderness at palpation LUNGS: Clear to auscultation bilaterally. No wheezing or crackles. CVS: Regular rate and rhythm, S1 and S2 present, no murmurs or gallops appreciated. ABDOMEN: Soft, non-tender. Bowel sounds are normal. No abnormal abdominal pulsations. EXTREMITIES: Full ROM in all major joints, no edema, no cyanosis or clubbing. NEURO: Alert and oriented x 3. No acute neurological deficits. Speech is normal and follows commands. SKIN: Dry and warm Triage Information Reviewed: Yes Vital Signs On Initial Exam: Initial Vitals Temp Pulse Resp BP Pulse Ox 98.9 F 122 18 156/100 99 02/06/19 16:36 02/06/19 16:36 02/06/19 16:36 02/06/19 16:36 02/06/19 16:36 Vital Signs Reviewed: Yes Diagnostics - Vital Signs Vital Signs Temp Pulse Resp BP Pulse Ox 02/06/19 18:30 99.1 F 82 20 154/83 99 02/06/19 16:36 98.9 F 122 18 156/100 99 - Laboratory Lab Statement: Any lab studies that have been ordered have been reviewed, and results considered in the medical decision making process. Course/Dx - Course Course Of Treatment: This patient is a 28 year old M presenting to ED with a chief complaint of anxiety since this morning. In the ED room, patient feels much better and only feels upset about the things he said during his panic attack. Patient is accompanied by his friend, who would drive him to his mother s house, where she would accompany him during the night. Thus, I feel comfortable discharging the patient since he is at his baseline. I discussed results with patient, and he reports feeling better. He is hemodynamically stable and safe for discharge. Strict return precautions given and he will otherwise follow up with his PCP. Patient will be discharged home with dx of anxiety reaction and marijuana use. - Differential Dx/Clinical Impression Provider Diagnosis: Anxiety reaction, Marijuana use Discharge - Sign-Out/Discharge Documenting (check all that apply): Patient Departure - Discharge Patient Received Moderate/Deep Sedation with Procedure: No - Discharge Plan Condition: Stable Disposition: HOME Patient Education Materials: Depression (ED), Polysubstance Abuse (ED), Anxiety (ED) Referrals: [facility] [place] PHYSICIAN REFERRAL [Outside] - 3 Days Khoa Lim MD [Medical Doctor] - Additional Instructions: Follow up with your primary care physician and Dr. Lim, psychiatrist in 1-3 days. RETURN TO THE EMERGENCY DEPARTMENT FOR CHANGING OR WORSENING SYMPTOMS. - Billing Disposition and Condition Condition: STABLE Disposition: Home - Attestation Statements Document Initiated by Scribe: Yes Documenting Scribe: Dimas Chavarria Provider For Whom Concepcion is Documenting (Include Credential): Twan Mata MD Scribe Attestation: IDimas, scribed for Twan Mata MD on 02/08/19 at 0812. Scribe Documentation Reviewed: Yes Provider Attestation: The documentation as recorded by the Dimas colindres accurately reflects the service I personally performed and the decisions made by me, Twan Mata MD Status of Scribe Document: Viewed
[2019-02-06 20:39] VITALS: BP 156/101
== END | disposition home or self-care (01) ==
LOC: ED 16:31
DX: F41.9 Anxiety disorder, unspecified (principal); F12.90 Cannabis use, unspecified, uncomplicated; F32.9 Major depressive disorder, single episode, unspecified; R63.0 Anorexia; Z79.899 Other long term (current) drug therapy; Z87.891 Personal history of nicotine dependence
CPT/HCPCS: 99282; A9270-GY

== ENCOUNTER 2019-02-07 19:42 | Emergency (ER) | payer BC ==
[2019-02-07 20:00] VITALS: BP 161/96
--- NOTE | 2019-02-07 20:18 | UC ---
UC General HPI - HPI Summary HPI Summary: Patient is a 28-year-old male who presents to the urgent care with chief complaint of anxiety, he hasn't been sleeping well, he has been taking stimulants, 50 mg of Adderall, smoking pot and he is being primary. She denies any suicidal or homicidal ideation. He reports that he is very impulsive. He is alert and oriented 3, he has normal cognition and he has capacity. He came into the urgent care to get some medications to decrease his anxiety. Patient is with his mother. - History of Current Complaint Chief Complaint: UCGeneralIllness Stated Complaint: ANEXITY Time Seen by Provider: 02/07/19 19:51 Hx Obtained From: Patient Onset/Duration: Gradual Onset Onset Severity: Mild Current Severity: Mild Pain Intensity: 0 - Allergy/Home Medications Allergies/Adverse Reactions: Allergies Allergy/AdvReac Type Severity Reaction Status Date / Time ENVIRONMENTAL - SEASONAL Allergy Unknown Uncoded 02/07/19 20:01 Reaction Details Home Medications: Home Medications Dextroamphetamine/Amphetamine [Adderall Xr 10 mg Capsule] 15 mg PO ONCE [History Confirmed 02/07/19] PMH/Surg Hx/FS Hx/Imm Hx Previously Healthy: Yes - Surgical History Surgical History: Yes Surgery Procedure, Year, and Place: 05/2011 LEFT HAND SURGERY, [facility] - Family History Known Family History: Positive: Non-Contributory Negative: Renal Disease - Social History Alcohol Use: Weekly Substance Use Type: Marijuana, Prescribed Substance Use Comment - Amount & Last Used: adderall 50 mg ER Smoking Status (MU): Light Every Day Tobacco Smoker Have You Smoked in the Last Year: No Review of Systems All Other Systems Reviewed And Are Negative: Yes Constitutional: Positive: Negative Skin: Positive: Negative Eyes: Positive: Negative ENT: Positive: Negative Respiratory: Positive: Negative Cardiovascular: Positive: Negative Gastrointestinal: Positive: Negative Genitourinary: Positive: Negative Motor: Positive: Negative Neurovascular: Positive: Negative Musculoskeletal: Positive: Negative Neurological: Positive: Negative Psychological: Positive: Anxious Is Patient Immunocompromised?: No Physical Exam - Summary Physical Exam Summary: VITAL SIGNS: Reviewed. GENERAL: Patient is a well developed and nourished male who is lying comfortably in the stretcher. Patient is not in any acute respiratory distress. HEAD AND FACE: No signs of trauma. No ecchymosis, hematomas or skull depressions. No sinus tenderness. EYES: PERRLA, EOMI x 2, No injected conjunctiva, no nystagmus. EARS: Hearing grossly intact. Ear canals and tympanic membranes are within normal limits. MOUTH: Oropharynx within normal limits. NECK: Supple, trachea is midline, no adenopathy, no JVD, no carotid bruit, no c- spine tenderness, neck with full ROM. CHEST: Symmetric, no tenderness at palpation LUNGS: Clear to auscultation bilaterally. No wheezing or crackles. CVS: Tachycardia, Regular rate and rhythm, S1 and S2 present, no murmurs or gallops appreciated. ABDOMEN: Soft, non-tender. No signs of distention. No rebound no guarding, and no masses palpated. Bowel sounds are normal. EXTREMITIES: FROM in all major joints, no edema, no cyanosis or clubbing. NEURO: Alert and oriented x 3. No acute neurological deficits. Speech is normal and follows commands. SKIN: Dry and warm Psych: Patient is anxious, he doesn't have any suicidal or homicidal ideation. He reports that he has some paranoia. However the patient is alert and oriented 3 and he has normal cognition. Triage Information Reviewed: Yes Appearance: Well-Appearing Vital Signs: Initial Vital Signs Temp 98.1 F 02/07/19 19:51 Pulse 120 02/07/19 19:51 Resp 14 02/07/19 19:51 BP 161/96 02/07/19 19:51 Pulse Ox 97 02/07/19 19:51 Vital Signs Reviewed: Yes Course/Dx - Course Course Of Treatment: Patient is tachycardic, he is alert and oriented 3, has normal cognition, he doesn't have any suicidal or homicidal ideations however I offered the patient to go to the ER for further assessment. He agrees, however he doesn't want to take an ambulance. She will go to the ED with his mother. Patient was signing AGAINST MEDICAL ADVICE. - Diagnoses Provider Diagnosis: Anxiety, Tachycardia, Substance abuse Discharge - Sign-Out/Discharge Documenting (check all that apply): Patient Departure All imaging exams completed and their final reports reviewed: No Studies - Discharge Plan Condition: Stable Disposition: HOME Patient Education Materials: Anxiety (ED) Referrals: [facility] PHYSICIAN REFERRAL [Outside] No Primary Care Phys,NOPCP [Primary Care Provider] - Additional Instructions: Patient left AGAINST MEDICAL ADVICE. Patient will go to the emergency room with his mother. - Billing Disposition and Condition Condition: STABLE Disposition: Home
== END 2019-02-07 20:15 | disposition left against medical advice (07) ==
LOC: UCEAST 19:42
DX: F41.9 Anxiety disorder, unspecified (principal); R00.0 Tachycardia, unspecified; F12.10 Cannabis abuse, uncomplicated
CPT/HCPCS: 99212; G0463

== ENCOUNTER 2019-02-08 14:55 | Emergency (ER) | payer BC ==
--- NOTE | 2019-02-08 17:23 | ED ---
Psychiatric Complaint - HPI Summary HPI Summary: Pt is a 28 y/o M presenting to the ED with a chief complaint of anxiety. Patient has a history of depression and anxiety for which he takes Zoloft. He states that multiple people were texting him today, making him feel overwhelmed , so he skipped work and brewed beer instead, which he described as planning my . He denies active suicidal ideation. He took his prescribed 15mg Adderall, smoked 1/3 of a cigar, and uses marijuana, but denies alcohol use. Accompanied by friend. - History Of Current Complaint Chief Complaint: EDPsychosocial Time Seen by Provider: 02/08/19 15:51 Hx Obtained From: Patient Onset/Duration: Sudden Onset, Lasting Hours, Still Present Timing: Hours Severity Initially: Moderate Severity Currently: Moderate Character: Anxious Aggravating Factor(s): Recent Stress Alleviating Factor(s): Nothing Associated Signs And Symptoms: Positive: Social Withdrawal Has Suicidal: Denies: Thoughts Has Homicidal: Denies: Thoughts - Allergies/Home Medications Allergies/Adverse Reactions: Allergies Allergy/AdvReac Type Severity Reaction Status Date / Time ENVIRONMENTAL - SEASONAL Allergy Unknown Uncoded 02/07/19 20:01 Reaction Details PMH/Surg Hx/FS Hx/Imm Hx Previously Healthy: Yes Endocrine/Hematology History: Reports: Hx Anemia - 06/16/2011 AFTER ACCIDENT R/ T TRAUMA TO HAND Sensory History: Reports: Hx Contacts or Glasses - GLASSES Denies: Hx Hearing Aid Opthamlomology History: Reports: Hx Contacts or Glasses - GLASSES Psychiatric History: Reports: Hx Anxiety, Hx Eating Disorder - Anorxia, Hx Depression - Surgical History Surgery Procedure, Year, and Place: 05/2011 LEFT HAND SURGERY, [facility] [place] Hx Anesthesia Reactions: No - Immunization History Immunizations Up to Date: Yes Infectious Disease History: No Infectious Disease History: Denies: Traveled Outside the [place] in Last 30 Days - Family History Known Family History: Negative: Cardiac Disease, Renal Disease - Social History Alcohol Use: Weekly Hx Substance Use: Yes Substance Use Type: Reports: Marijuana, Prescribed Substance Use Comment - Amount & Last Used: adderall 50 mg ER Hx Tobacco Use: Yes Smoking Status (MU): Light Every Day Tobacco Smoker Have You Smoked in the Last Year: No Review of Systems Negative: Fever Positive: Anxious All Other Systems Reviewed And Are Negative: Yes Physical Exam - Summary Physical Exam Summary: Constitutional: Well-developed, Well-nourished, Alert. (-) Distressed Skin: Warm, Dry HENT: Normocephalic; Atraumatic Eyes: Conjunctiva normal Neck: Musculoskeletal ROM normal neck. (-) JVD, (-) Stridor Cardio: Rhythm regular, rate normal, Heart sounds normal; Intact distal pulses; Radial pulses are 2+ and symmetric. (-) Murmur Pulmonary/Chest wall: Effort normal. (-) Respiratory distress, (-) Wheezes, (-) Rales Abd: Soft, (-) tenderness, (-) Distension, (-) Guarding, (-) Rebound Musculoskeletal: (-) Edema Lymph: (-) Cervical adenopathy Neuro: Alert, Oriented x3 Psych: Mood and affect Normal Triage Information Reviewed: Yes Vital Signs On Initial Exam: Initial Vitals Temp Pulse Resp BP Pulse Ox 98.6 F 93 18 174/100 98 02/08/19 15:01 02/08/19 15:01 02/08/19 15:01 02/08/19 15:01 02/08/19 15:01 Vital Signs Reviewed: Yes Diagnostics - Vital Signs Vital Signs Temp Pulse Resp BP Pulse Ox 02/08/19 15:01 98.6 F 93 18 174/100 98 - Laboratory Lab Statement: Any lab studies that have been ordered have been reviewed, and results considered in the medical decision making process. Re-Evaluation - Re-Evaluation 1st re-eval Re-Evaluation Time: 18:39 Change: Unchanged Comment: Pt can be discharged home per Dr. Lim with a dx of substance induced mood disorder. Course/Dx - Course Course Of Treatment: 28-year-old male history of anxiety presents with passive suicidal ideation. - Vital signs stable, no acute distress. The patient is denying suicidal ideation this time, his story is concerning therefore will have the mental health team assess him. - Differential Dx/Clinical Impression Provider Diagnosis: Substance induced mood disorder Discharge - Sign-Out/Discharge Documenting (check all that apply): Patient Departure Patient Received Moderate/Deep Sedation with Procedure: No - Discharge Plan Condition: Stable Disposition: HOME Referrals: [facility] [Outside] - If Needed [facility] [place] [Outside] - If Needed [facility] [Outside] - If Needed [facility] [Outside] - If Needed - Billing Disposition and Condition Condition: STABLE Disposition: Home - Attestation Statements Document Initiated by Naldoibe: Yes Documenting Scribe: Kelly Jackson Provider For Whom Concepcion is Documenting (Include Credential): Samantha Rene MD. Scribe Attestation: IKelly, scribed for Samantha Rene MD. on 02/08/19 at 2141. Scribe Documentation Reviewed: Yes Provider Attestation: The documentation as recorded by the scribe, Kelly Jackson accurately reflects the service I personally performed and the decisions made by , Samantha Rene MD. Status of Scribe Document: Viewed
[2019-02-08 18:56] VITALS: BP 161/85
== END 2019-02-08 18:55 | disposition home or self-care (01) ==
LOC: ED 14:55
DX: F19.94 Other psychoactive substance use, unspecified with psychoactive substance-induced mood disorder (principal); F41.9 Anxiety disorder, unspecified; D64.9 Anemia, unspecified; F17.210 Nicotine dependence, cigarettes, uncomplicated; Z79.899 Other long term (current) drug therapy
CPT/HCPCS: 99284

== ENCOUNTER 2019-02-10 12:46 | Inpatient (IN) | payer BC ==
[2019-02-10 13:33] LABS: Urine Appearance Clear; Urine Bilirubin Negative (Negative); Urine Blood Negative (Negative); Urine Color Yellow; Urine Glucose Negative (Negative); Urine Ketones Negative (Negative); Urine Nitrite Negative (Negative); Urine Protein Negative (Negative); Urine Specific Gravity 1.015 (1.010-1.030); Urine Urobilinogen Negative (Negative)
[2019-02-10 13:46] LABS: Urine Benzodiazepine Screen None Detected (None Detect); Urine Opiates Screen None Detected (None Detect)
--- NOTE | 2019-02-10 15:43 | ED ---
Psychiatric Complaint - HPI Summary HPI Summary: Patient's a 28-year-old male with history of anxiety and depression presenting to the ED with "racing thoughts." His friend states he found him smoking marijuana and drinking alcohol and had tangential thoughts that were not making sense. Friend states he has not been acting himself and is worsening. Pt has been here in the ED several times over the past few weeks. He states he followed up with a Dr. burrell and was given seroquel. He has taken one dose. Denies any HI/SI. - History Of Current Complaint Chief Complaint: EDMentalHealth Time Seen by Provider: 02/10/19 12:53 Hx Obtained From: Patient Onset/Duration: Sudden Onset Timing: Constant Severity Initially: Moderate Severity Currently: Moderate Character: Anxious Aggravating Factor(s): Recent Stress, Medication Non-compliance, Therapy Non- compliance Alleviating Factor(s): Nothing Associated Signs And Symptoms: Positive: Negative Related History: Positive For: Prior Psychiatric Issues - Risk Factor(s) Completed Suicide Risk Factors: Negative - Allergies/Home Medications Allergies/Adverse Reactions: Allergies Allergy/AdvReac Type Severity Reaction Status Date / Time ENVIRONMENTAL - SEASONAL Allergy Unknown Uncoded 02/10/19 12:53 Reaction Details Home Medications: Home Medications QUEtiapine TAB* [Seroquel 25 MG TAB*] 25 mg PO QPM 02/10/19 [History Confirmed 02/10/19] PMH/Surg Hx/FS Hx/Imm Hx Previously Healthy: Yes Endocrine/Hematology History: Reports: Hx Anemia - 06/16/2011 AFTER ACCIDENT R/ T TRAUMA TO HAND Sensory History: Reports: Hx Contacts or Glasses - GLASSES Denies: Hx Hearing Aid Opthamlomology History: Reports: Hx Contacts or Glasses - GLASSES Psychiatric History: Reports: Hx Anxiety, Hx Depression Denies: Hx Eating Disorder, Hx of Violent Episodes Against Others - Surgical History Surgery Procedure, Year, and Place: 05/2011 LEFT HAND SURGERY, [facility] Hx Anesthesia Reactions: No - Immunization History Hx Pertussis Vaccination: No Immunizations Up to Date: Yes Infectious Disease History: No Infectious Disease History: Denies: Traveled Outside the [place] in Last 30 Days - Family History Known Family History: Negative: Cardiac Disease, Renal Disease - Social History Occupation: Unemployed Lives: With Family Alcohol Use: Weekly Hx Substance Use: Yes Substance Use Type: Reports: Marijuana, Prescribed Substance Use Comment - Amount & Last Used: adderall 50 mg ER Hx Tobacco Use: Yes Smoking Status (MU): Light Every Day Tobacco Smoker Have You Smoked in the Last Year: No Review of Systems Negative: Fever, Chills, Fatigue, Skin Diaphoresis Negative: Palpitations, Chest Pain Negative: Shortness Of Breath, Cough Genitourinary: Negative Positive: no symptoms reported, see HPI Negative: Arthralgia, Myalgia Skin: Negative Neurological: Negative All Other Systems Reviewed And Are Negative: Yes Physical Exam Triage Information Reviewed: Yes Vital Signs On Initial Exam: Initial Vitals Temp Pulse Resp BP Pulse Ox 99.2 F 92 16 155/110 97 02/10/19 12:48 02/10/19 12:48 02/10/19 12:48 02/10/19 12:48 02/10/19 12:48 Vital Signs Reviewed: Yes Appearance: Positive: Well-Appearing Skin: Positive: Warm, Skin Color Reflects Adequate Perfusion Head/Face: Positive: Normal Head/Face Inspection Eyes: Positive: EOMI, Conjunctiva Clear Neck: Positive: Supple, No Lymphadenopathy Respiratory/Lung Sounds: Positive: Clear to Auscultation, Breath Sounds Present Cardiovascular: Positive: Pulses are Symmetrical in both Upper and Lower Extremities Musculoskeletal: Positive: Normal, Strength/ROM Intact Neurological: Positive: Speech Normal Psychiatric: Positive: Anxious, Patient Uncooperative for Exam Diagnostics - Vital Signs Vital Signs Temp Pulse Resp BP Pulse Ox 02/10/19 14:15 100.2 F 83 16 164/97 98 02/10/19 12:48 99.2 F 92 16 155/110 97 - Laboratory Lab Results: Lab Results 02/10/19 02/10/19 Range/Units 13:00 13:00 Urine Color Yellow Urine Appearance Clear Urine pH 5.0 (5-9) Ur Specific [place] 1.015 (1.010-1.030) Urine Protein Negative (Negative) Urine Ketones Negative (Negative) Urine Blood Negative (Negative) Urine Nitrate Negative (Negative) Urine Bilirubin Negative (Negative) Urine Urobilinogen Negative (Negative) Ur Leukocyte Esterase Negative (Negative) Urine Glucose Negative (Negative) Urine Opiates Screen None detected (None Detect) Ur Barbiturates Screen None detected (None Detect) Ur Phencyclidine Scrn None detected (None Detect) Ur Amphetamines Screen None detected (None Detect) U Benzodiazepines Scrn None detected (None Detect) Urine Cocaine Screen None detected (None Detect) U Cannabinoids Screen Presumptive positive A (None Detect) Lab Statement: Any lab studies that have been ordered have been reviewed, and results considered in the medical decision making process. Course/Dx - Course Course Of Treatment: During this course of treatment, the patient is evaluated for tangential thoughts, racing thoughts, sentences not making sense to friends and family and worsening anxiety. He originally states he would not like to stay, however he was placed on a constant observation and to flex unit was called to come over for an evaluation immediately. They placed him as a [address] Vasquez d/t worsening rebecca behavior. - Differential Dx/Clinical Impression Provider Diagnosis: Rebecca Discharge - Sign-Out/Discharge Documenting (check all that apply): Patient Departure Patient Received Moderate/Deep Sedation with Procedure: No - Discharge Plan Condition: Fair Disposition: ADMITTED TO [facility] Referrals: Daniel Blake MD [Primary Care Provider] - - Billing Disposition and Condition Condition: FAIR Disposition: Admitted to [facility]
[2019-02-10] MEDS ORDERED: Acetaminophen TAB* 325 MG PO PRN (17:06)
[2019-02-10] MEDS: QUEtiapine TAB* 25 MG PO SCH (18:55)
[2019-02-11] MEDS: Vitamin THERAPEUTIC TAB PO SCH ×2 (08:27→12:48)
[2019-02-11] MEDS: QUEtiapine TAB* 25 MG PO SCH ×2 (08:30→12:46)
--- NOTE | 2019-02-11 17:18 | HP ---
HISTORY AND PHYSICAL: DATE OF ADMISSION: 02/10/19 PROVIDER: Verónica Rosen NP in Psychiatry. SUPERVISING PHYSICIAN: Gray Vasquez MD.* (DICTATED BY GRACIA ROSEN NP) JUSTIFICATION FOR ADMISSION: The patient is in need of 24-hour supervision and care secondary to gross disorganization. CHIEF COMPLAINT: "I was driving, I got overwhelmed by the sound of people revving their engine and honking their horns. The radio is following me. " HISTORY OF PRESENT ILLNESS: The patient is a 28-year-old, single white male with no history of psychiatric illness, who arrives brought in by car and is here on a 9.39 status after behaving in a bizarre fashion and worrying his friends so that they brought him to the hospital. Although the story remains sketchy because of Lars' unwillingness to be forthcoming about everything that has happened, what is clear is that he has been having psychotic thoughts such as delusions of reference that people are revving their engines, beeping their horns, and it is all about him and it is the fault of his ex- girlfriend. He also believes that the radio is talking about him or knows where he is. He blames this on his ex-girlfriend, he wonders why did she move to [place]. She is "encroaching on my life." He wants to know if he should get a restraining order and asks "I would like to ask the view of a female, should I get a restraining order?" When he was in the emergency department, he heard voices outside the doors and believes that he recognized people and he did not make clear whether he found this threatening or not, but he was indeed uncomfortable. 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 Stressors include his work. He states that his father either 1 year ago today or in October 2015. He recognizes that his father had hallucinations ( related to Lewy body dementia) and he believes that he may have them as well. He is also troubled by the thought that his ex- girlfriend lives in town and he has determined that she is the cause of many of his problems. He is psychotic at this time, with ideas of reference, delusions, paranoia. He says that some of these have been going on since 2015 and he does relate that he believes that is related to his father's Lewy body dementia. PAST PSYCHIATRIC HISTORY: He has been prescribed Adderall in the past. He states that a nurse advocated for him to use marijuana to calm down and address his psychiatric symptoms. He states he is not suicidal or homicidal. His friends believe differently and have confiscated the knives and guns that he might have access to. As far as we know from Taras and the information in the evaluation, he does not have a history of violence or suicidal behavior. PAST MEDICAL HISTORY: He was diagnosed in his 20s with anorexia and that was treated. TRAUMA HISTORY: He denies a history of trauma. FORENSIC ISSUES: He may have access to an axe and a knife. It is not clear. He states he does not have access to weapons. FAMILY HISTORY: He again denies that this is problematic, but does indicate that his father from Lewy body dementia in October 2015 and his father hallucinated during that time. SUBSTANCE ABUSE: Although Taras denies abusing alcohol, the collaterals from the emergency department visit indicates that he was drinking a box of wine in an alleyway or behind a store and taking Adderall. Taras states that he only uses about 15 mg Adderall a day. This has been prescribed by Aura Del Valle , Usha Ramos, and Daniel Blake; this is according to the drug utilization report from the prescription monitoring program registry. Elsewhere he states he was taking 50 mg of Adderall. 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 He states, "you don't use your brain, you just use your life and you make a lot of money." He states he lived in the [facility] and that he did not enjoy it because of how hard he was working and unable to have free time. In July 2016 and he does remember the exact date being , he moved in with his mother to [place], [place]. At some point , he got a job at the [employer] office, which is where he is working now. He graduated from [employer], although he did not attend [employer] throughout all of his college experiences, he states he went to many colleges. He would like to move out and believes that he does have the financial ability to do so. 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 REVIEW OF SYSTEMS: The patient reports feeling alert. He denies shortness of breath, heat or cold intolerance, chest pain or abdominal pain. He denies neurological symptoms. He denies fevers or changes in weight. PHYSICAL EXAMINATION VITAL SIGNS: On 02/11/19 at 0807, temperature was 98.6, pulse 64, respirations 16, O2 sat on room air 100, blood pressure 153/72. APPEARANCE: Well appearing. HEENT: Head and face: Normal inspection. Eyes: EOMI. Conjunctivae clear. NECK: Supple. No lymphadenopathy. RESPIRATORY: Lungs sounds clear to auscultation. Breath sounds present. CARDIOVASCULAR: Pulses are symmetrical in both upper and lower extremities. MUSCULOSKELETAL: Normal strength and range of motion intact. NEUROLOGICAL: Speech is normal. At the time of examination in the emergency department, Taras was anxious and uncooperative for the exam. SKIN: Warm. Skin color reflects adequate perfusion. DIAGNOSTIC STUDIES/LAB DATA: No blood was available for the exam. His urine sample was within normal limits. Toxicology screen shows positive for cannabinoids. MENTAL STATUS EXAM: Taras is 5 feet 6 inches, 185-pound man with brittni-colored hair and a long moustache. He sits quite still with a stiff posture. He is cooperative and superficially calm, although he seems either irritable or anxious under the surface. His speech is of a normal rate. His tone is quite oconnor. The volume is normal. He is apparently euthymic with an extremely constricted affect. His thought processes are not logical and he is delusional with ideas of reference, delusions that are persecutory and grandiose. He denies homicidality and suicidality. He does have auditory hallucinations and it is possible that his description of the emergency department includes visual hallucinations. His insight is poor. His judgment is poor. He is alert and oriented x3 with concerns about his orientation to time as he is not sure what date is now or when his father . DIAGNOSES: 1. Substance-induced mood disorder. 2. Psychotic disorder. IMPRESSION: Taras is a 28-year-old man who is psychotic and irritable who comes to the hospital after his friends found him drinking alcohol and smoking marijuana behind a building as well as he is having delusions that people are talking about him, that the radio is following him and that he believes his ex- girlfriend is persecuting him. PLAN: The patient is admitted to the adult behavioral unit and placed on q.15- minute checks for his own safety. He is encouraged to participate in supportive milieu, individual and group therapies. Estimated length of stay is 5 to 7 days. We will titrate medications' efficacy including Risperdal with a look forward to Invega Sustenna and monitor for mood and thought content. Discharge planning will include family involvement and outpatient providers. VERÓNICA ROSEN, CHHAYA [id number]/CPS #: [id number] MACKENZIE
[2019-02-11] MEDS: Nicotine* 2MG (FRUIT FLAVOR) GUM PO PRN (19:09)
[2019-02-11] MEDS ORDERED: diPHENhydraMINE PO* 50 MG PO ONE (21:00)
[2019-02-11] MEDS: risperiDONE TAB* 1 MG PO SCH (21:05)
[2019-02-12] MEDS: risperiDONE TAB* 1 MG PO PRN ×2 (04:50→18:50)
[2019-02-12] MEDS ORDERED: OLANzapine TAB*ODT* 10 MG TAB PO ONE (05:35)
[2019-02-12] MEDS ORDERED: OLANzapine TAB*ODT* 10 MG TAB ONE (05:40)
[2019-02-12] MEDS: Vitamin THERAPEUTIC TAB PO SCH (09:14)
[2019-02-12 11:08] LABS: ABS Eosinophils 0.3 10^3/ul (0-0.6); ABS Lymphocytes 3.3 10^3/ul (1.0-4.8); ABS Monocytes 0.5 10^3/ul (0-0.8); ABS Neutrophils 2.8 10^3/ul (1.5-7.7); Eosinophil % 4.8 %; Hematocrit 48 % (42-52); Hemoglobin 16.2 g/dL (14.0-18.0); Lymphocyte % 47.4 %; Mean Corpuscular HGB Conc 34 g/dL (31-36); Mean Corpuscular Hemoglobin 28 pg (27-31); Mean Corpuscular Volume 84 fL (80-94); Mean Platelet Volume 7.2 fL (7.4-10.4); Nucleated Red Blood Cells % 0.2; Platelet Count 252 10^3/uL (150-450); Red Blood Count 5.76 10^6 /uL (4.18-5.48); Red Cell Distribution Width 14 % (10-15); White Blood Count 6.9 10^3/uL (3.5-10.8)
[2019-02-12 11:25] LABS: Albumin 4.5 g/dL (3.2-5.2); Albumin/Globulin Ratio 1.7 (1-3); BUN/Creatinine Ratio 10.8 (8-20); Calcium 9.8 mg/dL (8.6-10.3); EGFR African American 94.1 (>60); EGFR Non-African American 77.8 (>60); Globulin 2.6 g/dL (2-4); HDL Cholesterol 42.4 mg/dL; Potassium 4.2 mmol/L (3.5-5.0); Total Bilirubin 0.7 mg/dL (0.2-1.0); Total Protein 7.1 g/dL (6.4-8.9)
[2019-02-12 11:57] LABS: TSH (Thyroid Stimulating Horm) 2.16 mcIU/mL (0.34-5.60)
[2019-02-12] MEDS: Al Hydrox/Mg Hydrox/Simet LIQ* 30 ML UDC PO PRN (18:48)
[2019-02-12] MEDS: Nicotine* 2MG (FRUIT FLAVOR) GUM PO PRN (19:39)
[2019-02-12] MEDS: risperiDONE TAB* 1 MG PO SCH (20:19)
[2019-02-13] MEDS: risperiDONE TAB* 1 MG PO PRN ×2 (09:55→15:41)
[2019-02-13] MEDS: Vitamin THERAPEUTIC TAB PO SCH (09:56)
--- NOTE | 2019-02-13 15:01 | PN ---
Subjective - Subjective Date of Service: 02/13/19 Subjective: Taras denies any bothersome psychiatric complaints, he endorses restful sleep, denies A/VH, delusions, SI/I and he contracts for safety. He asked about process to be discharged despite having already submitted a court request. He denies side effects from prescribed Risperidone but argues that he does not need it. Per staff, he has been mostly seclusive to his room. Objective - General Observations Appearance: Neat Appears Stated Age: Yes Stature: WNL Posture: WNL Eye Contact: Avoidant Behavior/Activity: WNL - Interaction Observations Attitude Towards Examiner: Mistrustful Stated Mood: Dysphoric Affect: Restricted Speech Pattern/Tone: Clear Thought Process: Disorganized Thought Content: Paranoid Thought Process: Lethality: Paranoid Ideation Hallucination Type: None Delusion Type: None - Cognitive Function Orientation: A&O x 4 Level of Consciousness: Alert Cognition: WNL Estimated Intelligence: Normal Insight: Difficulty Acknowledging Presence of Psyciatric Problems Judgment Within Normal Limits: No - Medication Compliance Cooperative with Inpatient Medication Regimen: Partial - Group Participation Participates in Group Activities: No Assessment - Assessment Clinical Impression: Ongoing impairing psychotic symptoms. He needs continued inpatient level of care for stabilization. Plan - Plan Treatment Plan: Name: TARAS ALTMAN Birthdate: 1990 [id number] Medications: Current Medications Acetaminophen (Tylenol Tab*) 650 mg PO Q4H PRN PRN Reason: PAIN or TEMP > 101 F Al Hydrox/Mg Hydrox/Simethicone (Maalox Plus*) 30 ml PO Q4H PRN PRN Reason: INDIGESTION Last Admin: 02/12/19 18:48 Dose: 30 ml Multivitamins (Theragran Tab*) 1 tab PO DAILY [facility] Last Admin: 02/13/19 09:56 Dose: 1 tab Nicotine Polacrilex (Nicotine Gum*) 2 mg PO Q2H PRN PRN Reason: CRAVINGS Last Admin: 02/12/19 19:39 Dose: 2 mg Risperidone (Risperdal*) 1 mg PO BEDTIME [facility] Last Admin: 02/12/19 20:19 Dose: 1 mg Risperidone (Risperdal*) 1 mg PO Q6H PRN PRN Reason: AGITATION Last Admin: 02/13/19 09:55 Dose: 1 mg - Discharge Plan Discharge Plan: Outpatient Follow Up Outpatient Program: [facility]
[2019-02-13] MEDS: Nicotine* 2MG (FRUIT FLAVOR) GUM PO PRN ×2 (15:41→22:32)
[2019-02-13] MEDS: risperiDONE TAB* 1 MG PO SCH (20:34)
[2019-02-14] MEDS: risperiDONE TAB* 1 MG PO PRN (05:00)
[2019-02-14] MEDS: Nicotine* 2MG (FRUIT FLAVOR) GUM PO PRN (05:40)
[2019-02-14] MEDS: Vitamin THERAPEUTIC TAB PO SCH (10:02)
[2019-02-14] MEDS: Al Hydrox/Mg Hydrox/Simet LIQ* 30 ML UDC PO PRN (11:02)
--- NOTE | 2019-02-14 16:23 | PN ---
Subjective - Subjective Date of Service: 02/14/19 Service Type: [id number] Hosp care 25 min moderate complexity Subjective: Taras met with Linda Anand LCSW, and with me and discussed his desire to leave and to go outside. Because he has a court request entered, he will not be permitted to go outside and because he is not significantly improved, he will not be leaving the hospital. Taras has been reported to have some bizarre behaviors, such as growling and baring his teeth, over the weekend. He acknowledges that this was strange, but does not offer an explanation. He agrees to take an increased dose of Risperdal (1 mg BID) and to start lithium, as collateral has indicated that he had been manic leading up to his psychotic presentation. Objective - General Observations Appearance: Neat, Well Groomed Appears Stated Age: Yes Stature: Thin Posture: Rigid Eye Contact: Intense Behavior/Activity: WNL - Interaction Observations Attitude Towards Examiner: Cooperative, Dismissive Stated Mood: Dysphoric, Irritable Affect: Restricted Speech Pattern/Tone: Clear Thought Process: Coherent Perception: WNL Thought Content: Paranoid Thought Process: Lethality: Paranoid Ideation Hallucination Type: Denies Delusion Type: Denies - Cognitive Function Orientation: A&O x 4 Level of Consciousness: Awake, Alert, Appropriate Cognition: WNL Estimated Intelligence: Above Normal Insight: Difficulty Acknowledging Presence of Psyciatric Problems Judgment Within Normal Limits: No Ability to Make Reasonable Decisions: Serverely Impaired - Medication Compliance Cooperative with Inpatient Medication Regimen: Yes - Group Participation Participates in Group Activities: Yes Assessment - Assessment Merits Inpatient Hospitalization: For Immediate Safety Clinical Impression: Ongoing impairing psychotic symptoms. He needs continued inpatient level of care for stabilization. Plan - Plan Treatment Plan: Name: TARAS ALTMAN Birthdate: 1990 [id number] 02/14/19 Taras will be ordered Risperdal 1 mg BID [place] will be started [address] request information will be followed up on. Continued Medication Management: Different Medication Medications: Current Medications Acetaminophen (Tylenol Tab*) 650 mg PO Q4H PRN PRN Reason: PAIN or TEMP > 101 F Al Hydrox/Mg Hydrox/Simethicone (Maalox Plus*) 30 ml PO Q4H PRN PRN Reason: INDIGESTION Last Admin: 02/14/19 11:02 Dose: 30 ml [place] Carbonate ([place] Carbonate Tab*) 300 mg PO BID [facility] Multivitamins (Theragran Tab*) 1 tab PO DAILY [facility] Last Admin: 02/14/19 10:02 Dose: 1 tab Nicotine Polacrilex (Nicotine Gum*) 2 mg PO Q2H PRN PRN Reason: CRAVINGS Last Admin: 02/14/19 05:40 Dose: 2 mg Risperidone (Risperdal*) 1 mg PO Q6H PRN PRN Reason: AGITATION Last Admin: 02/14/19 05:00 Dose: 1 mg Risperidone (Risperdal*) 1 mg PO BID [facility]
[2019-02-14] MEDS: Lithium Carbonate TAB* 300 MG PO SCH (16:48)
[2019-02-14] MEDS: risperiDONE TAB* 1 MG PO SCH (21:11)
[2019-02-15] MEDS: risperiDONE TAB* 1 MG PO SCH ×2 (09:07→20:34)
[2019-02-15] MEDS: Vitamin THERAPEUTIC TAB PO SCH (09:08)
[2019-02-15] MEDS: Lithium Carbonate TAB* 300 MG PO SCH ×2 (09:08→20:34)
--- NOTE | 2019-02-15 10:39 | PN ---
Subjective - Subjective Date of Service: 02/15/19 Service Type: 84031 Hosp care 15 min low complexity Subjective: Met with Taras and his mom. His mom, Marion, had concerns about Taras's work situation and requested a letter for work. Marion also had concerns about Taras' s symptoms being indicative of Lyme disease. Although the symptoms do not seem to line up to me, a Lyme test will be added to his previous lab work. Taras remains slightly agitated, but he is more reasonable than he has been and is interested in knowing the prospects for his discharge. Objective - General Observations Appearance: Neat Appears Stated Age: Yes Stature: Thin Posture: WNL Eye Contact: Intense Behavior/Activity: WNL - Interaction Observations Attitude Towards Examiner: Cooperative, Defensive Stated Mood: Dysphoric, Irritable, Anxious Affect: Full Speech Pattern/Tone: Clear Thought Process: Coherent Perception: WNL Thought Content: WNL Hallucination Type: None Delusion Type: None, Denies - Cognitive Function Orientation: A&O x 4 Level of Consciousness: Awake, Alert, Appropriate Cognition: WNL, Impaired Attention/Concentration Estimated Intelligence: Above Normal Insight: Difficulty Acknowledging Presence of Psyciatric Problems Judgment Within Normal Limits: No Ability to Make Reasonable Decisions: Moderately Impaired - Medication Compliance Cooperative with Inpatient Medication Regimen: Yes - Group Participation Participates in Group Activities: Yes Assessment - Assessment Merits Inpatient Hospitalization: For Immediate Safety Inpatient DSM-V Dx: F31.2 Clinical Impression: 28-year-old white male with history of delusions in the past comes to the hospital with delusions, agitation, and irritability. He has improved significantly and will be discharged tomorrow. Plan - Plan Treatment Plan: Name: TARAS ALTMAN Birthdate: 1990 [id number] 02/14/19 Taras will be ordered Risperdal 1 mg BID [place] will be started [address] request information will be followed up on. Continued Medication Management: Different Medication Medications: Current Medications Acetaminophen (Tylenol Tab*) 650 mg PO Q4H PRN PRN Reason: PAIN or TEMP > 101 F Al Hydrox/Mg Hydrox/Simethicone (Maalox Plus*) 30 ml PO Q4H PRN PRN Reason: INDIGESTION Last Admin: 02/14/19 11:02 Dose: 30 ml [place] Carbonate ([place] Carbonate Tab*) 300 mg PO BID [facility] Last Admin: 02/15/19 09:08 Dose: 300 mg Multivitamins (Theragran Tab*) 1 tab PO DAILY [facility] Last Admin: 02/15/19 09:08 Dose: 1 tab Nicotine Polacrilex (Nicotine Gum*) 2 mg PO Q2H PRN PRN Reason: CRAVINGS Last Admin: 02/14/19 05:40 Dose: 2 mg Risperidone (Risperdal*) 1 mg PO Q6H PRN PRN Reason: AGITATION Last Admin: 02/14/19 05:00 Dose: 1 mg Risperidone (Risperdal*) 1 mg PO BID [facility] Last Admin: 02/15/19 09:07 Dose: 1 mg - Discharge Plan Discharge Plan: Outpatient Follow Up
[2019-02-16] MEDS: Lithium Carbonate TAB* 300 MG PO SCH ×2 (09:02→20:23)
[2019-02-16] MEDS: Vitamin THERAPEUTIC TAB PO SCH (09:02)
[2019-02-16] MEDS: risperiDONE TAB* 1 MG PO SCH ×2 (09:03→20:23)
--- NOTE | 2019-02-16 16:30 | PN ---
Subjective - Subjective Date of Service: 02/16/19 Service Type: 43172 Hosp care 25 min moderate complexity Subjective: Taras is doing significantly better today. His body language lacks hostility and he is curious and interested and distressed about what has happened to him. His diagnosis is introduced and he knows some things about it, but also has much to incorporate and research to do. Taras is pleasant and accepting of his diagnosis. He is eager to leave. Objective - General Observations Appearance: Neat Stature: WNL Posture: WNL Eye Contact: Average Behavior/Activity: WNL - Interaction Observations Attitude Towards Examiner: Cooperative, Anxious Stated Mood: Dysphoric Affect: Full Speech Pattern/Tone: Clear Thought Process: Coherent, Goal Directed Perception: WNL Thought Content: Preoccupation/Ruminations Hallucination Type: None Delusion Type: None - Cognitive Function Orientation: A&O x 4 Level of Consciousness: Awake, Alert, Appropriate Cognition: WNL, Impaired Attention/Concentration Estimated Intelligence: Above Normal Insight: WNL Judgment Within Normal Limits: Yes - Medication Compliance Cooperative with Inpatient Medication Regimen: Yes - Group Participation Participates in Group Activities: Yes Assessment - Assessment Merits Inpatient Hospitalization: For Immediate Safety Inpatient DSM-V Dx: F31.64 Clinical Impression: Taras is a 28 year old white male with a prior history of possible delusions several years ago who is now diagnosed with bipolar 2 disorder, mixed, with psychotic features. He will be discharged tomorrow. Plan - Plan Treatment Plan: Name: TARAS ALTMAN Birthdate: 1990 [id number] 02/14/19 Taras will be ordered Risperdal 1 mg BID [place] will be started [address] request information will be followed up on. 02/16/19 Taras is taking medications appropriately. He will be advised that Risperdal will not be an ongoing medication, but lithium will be. I will not schedule a lithium level, but will increase dose tomorrow for outpatient. Continued Medication Management: Different Medication Medications: Current Medications Acetaminophen (Tylenol Tab*) 650 mg PO Q4H PRN PRN Reason: PAIN or TEMP > 101 F Al Hydrox/Mg Hydrox/Simethicone (Maalox Plus*) 30 ml PO Q4H PRN PRN Reason: INDIGESTION Last Admin: 02/14/19 11:02 Dose: 30 ml [place] Carbonate ([place] Carbonate Tab*) 300 mg PO BID [facility] Last Admin: 02/16/19 09:02 Dose: 300 mg Multivitamins (Theragran Tab*) 1 tab PO DAILY [facility] Last Admin: 02/16/19 09:02 Dose: 1 tab Nicotine Polacrilex (Nicotine Gum*) 2 mg PO Q2H PRN PRN Reason: CRAVINGS Last Admin: 02/14/19 05:40 Dose: 2 mg Risperidone (Risperdal*) 1 mg PO Q6H PRN PRN Reason: AGITATION Last Admin: 02/14/19 05:00 Dose: 1 mg Risperidone (Risperdal*) 1 mg PO BID [facility] Last Admin: 02/16/19 09:03 Dose: 1 mg - Discharge Plan Discharge Plan: Outpatient Follow Up
[2019-02-17] MEDS: Lithium Carbonate TAB* 300 MG PO SCH (08:58)
[2019-02-17] MEDS: Vitamin THERAPEUTIC TAB PO SCH (08:58)
[2019-02-17] MEDS: risperiDONE TAB* 1 MG PO SCH (08:59)
[2019-02-17 09:12] VITALS: BP 124/76
[2019-02-17] MEDS ORDERED: risperiDONE TAB* 2 MG PO SCH (21:00)
[2019-02-17] MEDS ORDERED: Lithium Carbonate ER* 450 MG TAB.ER PO SCH (21:00)
--- NOTE | 2019-02-20 22:17 | DS ---
DISCHARGE SUMMARY: DATE OF ADMISSION: 02/10/19 DATE OF DISCHARGE: 02/17/19 PROVIDER: Verónica Rosen NP, in Psychiatry. SUPERVISING PHYSICIAN: Dr. Aidan Connolly.* (DICTATED BY VERÓNICA ROSEN NP ) DIAGNOSIS: Bipolar 1 disorder, severe, manic with psychotic features. CONDITION AT THE TIME OF DISCHARGE: Improved, psychiatrically cleared, stable. When Taras was stable, he participated in groups and was appropriately social with peers. His family is agreeable to his discharge. He has done well here psychiatrically. He tolerated new medications well and he will be attending therapy and medication management with [facility]. MENTAL STATUS EXAM: At the time of discharge, Taras is calm, cooperative, and makes good eye contact. He is alert and oriented x4. His grooming is excellent. His speech pace is normal. His thought processes are logical. He is not psychotic or delusional. He denies AH, VH, SI, and HI. His insight and judgment are good. He is willing to followup and urged to see a therapist. DISCHARGE INSTRUCTIONS TO THE PATIENT: A. Medications: 1. [place] carbonate ER 900 mg at bedtime. 2. Risperdal 2 mg at bedtime. 3. Therapeutic vitamin daily. B. Diet is regular. C. Activities as tolerated. Taras is a nonsmoker. There are no studies pending at the time of discharge. D. Followup care. He has appointments for intake on , 02/24/19, at 8: 45 with [facility] Slade. He needs to discuss meeting with Dr. Cross regarding medication management. He also is recommended to see Dr. Blake on , 03/03/19, at 3:50 in the downtown location on [facility]. E. Disposition. Taras is discharged home with his mom. F. Substance abuse followup is not indicated. HOSPITAL COURSE: Part A: Chief complaint: "I was driving, I got overwhelmed by the sound of people revving their engine and honking their horns, the radio was following me." The patient is a 28-year-old, single white male with no history of psychiatric illness, who arrives, brought in by car and is here on a 9.39 status after behaving in a bizarre fashion and worrying his friends, so that they brought him to the hospital. Although the story remains sketchy because Taras' unwillingness to be the forthcoming about everything that has happened, what is clear is that he has been having psychotic thoughts such as delusions of reference that people are revving their engines, beeping their horns, and it is all about him and that it is the fault of his ex-girlfriend. He also believes that the radio was talking about him or knows where he is. He blames this on his ex-girlfriend. He wonders why did she move to [place]. She is "encroaching on my life". He wants to know if he should get a restraining order and asks "I would like to ask that he was female, should I get a restraining order?" When he was in the emergency department, he heard voices outside the doors and believes that he recognized people and he did not make clear whether he found this threatening or not, but he was indeed uncomfortable. 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 Stressors include his work. He states that his father either 1 year ago today or in October 2015. He recognizes that his father had hallucinations related to Lewy body dementia and he believes that he may have then as well. He is also troubled by the thought that his ex-girlfriend lives in town and he has determined that she is the cause of many of his problems. He is psychotic at this time with ideas of reference, delusions, and paranoia. He says that some of these have been going on since 2016 and he does relate that he believes that this is related to his father's Lewy body dementia. Part B: Psychiatric treatment was rendered. Taras was admitted to the adult behavioral unit and placed on q.15-minute checks for his safety. Taras progressed well on the unit. He was initially unwilling to take medication, but was motivated to leave and therefore took medication as requested. We started with Risperdal 1 mg at bedtime, rapidly advanced, through the use of p.r.n.'s and then scheduled Risperdal, and increased dosing to Risperdal 2 mg at bedtime. [place] was started at 300 mg b.i.d. He did enter a court request and then rescinded it as it became clear to him that he was not in an adversarial relationship and that it could take longer to be discharged that way. Taras did take medications appropriately. His psychosis receded and his beena also receded. By the day of his discharge, he was no longer psychotic at all and he was more likely to be categorized as being mildly to moderately hypomanic. I did advise Taras that he should begin to taper Risperdal over time and that after 6 or 7 days, he could reduce the Risperdal dose to 1 mg instead of 2. I am hopeful that his Risperdal will be discontinued or he will be started on a more palatable antipsychotic such as Abilify, Latuda, or Vraylar. His lithium level was not drawn as Taras does not tolerate blood draws very well and it was unlikely that he would be at a therapeutic level. I increased his dosage from [address] of [address] hospital, but anticipate that when it is time for his stable lithium blood draw, he will be at a therapeutic level. Taras' hemoglobin A1c was 5.3, triglycerides were 139, cholesterol was 126, LDL cholesterol was 56, HDL cholesterol 42.4. Incidentally, his TSH is 2.16. Taras was using up to 50 mg at a time of Adderall. He finds that it is very helpful to keeping him focused and on course. He was not open to a discussion about how many people with bipolar disorder do not have great concentration until they are treated properly, but he may be open to that discussion later. In any case, he was willing to stop taking Adderall entirely and I suggested at least a 6-month hiatus from that medication to see how his other medications are affecting him. We did meet with his mother, Marion, who had many questions regarding his prognosis and his future. She was reassured and she and Taras seem to get along well.g. No consults were entered for Taras. He is significantly improved. He was adversarial when we first met him and at this point of his discharge, he was pleasant, thoughtful, and understanding. VERÓNICA ROSEN, CHHAYA [id number]/[facility] #: [id number] [facility]AMPUSJose Eduardo
== END 2019-02-17 13:17 | disposition home or self-care (01) | DRG 753 ==
LOC: ED 12:46 → BSU 17:15
PROVIDERS: ADMIT Psychiatry & Neurology Psychiatry; ATTEND Psychiatry & Neurology Psychiatry
DX: F31.2 Bipolar disorder, current episode manic severe with psychotic features (principal); Z79.899 Other long term (current) drug therapy; Z84.89 Family history of other specified conditions
CPT/HCPCS: 36415; 80053; 80061; 80307; 81003; 83036; 84443; 85025; 86617; 86618; 99222; 99231; 99232; 99238; 99284; A9270-GY